=== PATIENT | female | born 2000 | race African-American/Black ===

== ENCOUNTER → 2018-06-01 10:58 | Outpatient (CLI) | payer OTHER, MEDICAID, SELFPAY ==
--- NOTE | 2018-06-01 11:14 | MRI_ITS ---
STUDY: MRI RIGHT KNEE REASON FOR EXAM: Female, 18 years old. Twisting injury playing basketball. TECHNIQUE: Standardized fat and water weighted pulse sequences were obtained in all 3 orthogonal planes. COMPARISON: None. FINDINGS: There is a medial meniscus tear of the posterior horn, series 4 images 32/44 and 33/44. Normal hyaline cartilage of the medial femorotibial compartment. There is reactive marrow edema of the medial femoral condyle and posterior medial tibial plateau. There is a partial sprain of the MCL with interstitial and periligamentous edema. Normal distal semimembranosus, gracilis and semitendinosus tendons. There is lateral meniscus tear of the posterior horn, series 8 image 11/30. Normal hyaline cartilage of the lateral femorotibial compartment. There is reactive marrow edema of the lateral femoral condyle and posterior lateral tibial plateau. Normal proximal tibiofibular articulation. Normal lateral collateral (fibular) ligament. Normal popliteus tendon. Normal biceps femoris tendon. There is discontinuity of the rupture of the anterior cruciate ligament (ACL), series 5 image 13/25. Normal posterior cruciate ligament (PCL). Normal congruent patellofemoral articulation. Normal hyaline cartilage of the patellofemoral compartment. Normal medial and lateral patellar retinaculum. Normal quadriceps tendon. Normal patellar tendon. Normal Hoffa's fat pad. There is a large volume joint effusion. The soft tissues are unremarkable. The otherwise visualized osseous structures are unremarkable. MRI/Lower Ext Joint Only (Routine) IMPRESSION: Anterior cruciate ligament rupture. Medial collateral ligament sprain. Medial meniscus tear. Lateral meniscus tear. Joint effusion. Bone bruising. Electronically Signed: Barak Mckoy MD at 13:08 EST , Service support ,
== END ==
PROVIDERS: Referring Provider Family Medicine; Visit Provider Family Medicine
DX: M25.361 Other instability, right knee (principal)
CPT/HCPCS: 73721

== ENCOUNTER 2018-06-28 05:49 | Day surgery (SDC) | payer OTHER, MEDICAID, SELFPAY ==
[2018-06-28] VITALS (7 sets, daily range): BP systolic 119–134; BP diastolic 69–83; PULSE 67–79; RESP 14–16; TEMP 36.6–37; O2SAT 95–100; BMI 24.9
[2018-06-28 06:16] LABS: Internal QC Validated? YES +Cl - CLEAR BKGD; Pregnancy, Urine Negative Negative
[2018-06-28] MEDS: Cefazolin 2 GM in 0.9% Normal Saline 100 ML IV (07:20)
[2018-06-28] MEDS: Bupiv/Epi 0.5% Mpf 30 ML Vial (07:39)
--- NOTE | 2018-06-28 09:15 | PCM.IMDPSTOP ---
Immediate Post-Op Note Date of Procedure: 06/28/18 Primary Surgeon/Physician: Taj Lew DO marine fire fighter: Spencer Gonzalez Pre-Operative Diagnosis: MMT, LMT, ACL tear right knee Post-Operative Diagnosis: same Surgery/Procedure Performed:: Arthroscopic partial medial and lateral meniscectomies with ACL reconstrustion using hamstring autograft Description of Surgical Findings:: see op note Estimated Blood Loss: minimal Specimen's removed: none Type of Anesthesia:: General ASA Class: ASA1 Normal Healthy Patient - Admit VTE Documentation VTE Present on Admission: No VTE Mechan Device Prophylaxis: SCD's, Thigh High ABHI Hose VTE Pharm Prophylaxis ordered?: No Reason prophylaxis not ordered:: Treatment Not Indicated
--- NOTE | 2018-06-28 09:18 | OP.PN_ITS ---
Immediate Post-Op Note Date of Procedure: 06/28/18 Primary Surgeon/Physician: Taj Lew DO orthopedic cast specialist: Spencer Gonzalez Pre-Operative Diagnosis: MMT, LMT, ACL tear right knee Post-Operative Diagnosis: same Surgery/Procedure Performed:: Arthroscopic partial medial and lateral meniscectomies with ACL reconstrustion using hamstring autograft Description of Surgical Findings:: see op note Estimated Blood Loss: minimal Specimen's removed: none Type of Anesthesia:: General ASA Class: ASA1 Normal Healthy Patient - Admit VTE Documentation VTE Present on Admission: No VTE Mechan Device Prophylaxis: SCD's, Thigh High ABHI Hose VTE Pharm Prophylaxis ordered?: No Reason prophylaxis not ordered:: Treatment Not Indicated
[2018-06-28] MEDS: HYDROcodone Bitartrate/Apap 5/325 Tablet PO (10:44)
== END 2018-06-28 12:18 | disposition home or self-care (01) ==
LOC: SDC 05:51 → AC 05:53
PROVIDERS: Anesthesiology; Referring Provider Orthopaedic Surgery; Visit Provider Orthopaedic Surgery
PROC: (CPT 29880; principal; 2018-06-28 07:10)
DX: S83.511D Sprain of anterior cruciate ligament of right knee, subsequent encounter (principal); S83.241A Other tear of medial meniscus, current injury, right knee, initial encounter; S83.281A Other tear of lateral meniscus, current injury, right knee, initial encounter; X58.XXXA Exposure to other specified factors, initial encounter; Y93.67 Activity, basketball; Y92.214 College as the place of occurrence of the external cause; Y99.8 Other external cause status; J45.909 Unspecified asthma, uncomplicated
CPT/HCPCS: 01400; 29880; 29888; 64450; 81025; J7120; J2405

== ENCOUNTER 2018-10-06 14:10 | Emergency (ER) | payer MEDICAID, SELFPAY ==
[2018-06-28 06:21] VITALS: BMI 24.9
[2018-10-06 14:11] VITALS: BP 114/71; PULSE 86; RESP 16; TEMP 36.7; O2SAT 97; BMI 24.3
[2018-10-06 15:19] VITALS: O2SAT 97
--- NOTE | 2018-10-06 15:38 | EKG12_ITS ---
Test Reason : CP Blood Pressure : / mmHG Vent. Rate : 075 BPM Atrial Rate : 075 BPM P-R Int : 156 ms QRS Dur : 082 ms QT Int : 364 ms P-R-T Axes : 060 058 050 degrees QTc Int : 406 ms Normal sinus rhythm Possible Left atrial enlargement Borderline ECG Confirmed by GUI GOLD, ERYN ([id number]), content editor KALA AMAYA ([id number]) on 10/18/2018 1:51:24 PM Referred By: YEMI/PAULINO Confirmed By:ERYN MESSER MD
--- NOTE | 2018-10-06 15:38 | RAD_ITS ---
STUDY: X-RAY CHEST REASON FOR EXAM: Female, 18 years old. Chest pain. TECHNIQUE: PA and lateral views of the chest. COMPARISON: None. FINDINGS: There is a vague rounded opacity within the right upper/midlung. Normal size heart. Normal mediastinum and joão. Normal visualized pulmonary arteries. Normal visualized aortic arch and descending thoracic aorta. Normal visualized thoracic spine. Normal visualized ribs, clavicles, and shoulders. There is no demonstrated abnormality of the visualized soft tissue structures of the upper abdomen. RAD/Chest PA and Lateral IMPRESSION: Vague opacity within the right upper/midlung which may be secondary to a confluence of shadows however cannot exclude underlying evolving pneumonia or a pulmonary nodularity; consider CT or inspiratory and expiratory images for further characterization. Electronically Signed: Ruthie Schultz MD at 16:24 EDT Tel , Service support ,
--- NOTE | 2018-10-06 15:51 | ED.DCSUM_ITS ---
- ER Visit Summary Date of Service: 10/06/18 Chief Complaint: Shortness of breath History of Present Illness: The patient is a 18 F who presents with shortness of breath that has been getting worse over the past 2 weeks. Patient states her breathing is worse with any exertion. Patient states her breathing improves with rest. Patient describes her pain as a throbbing pain but is sharp with certain movements. Patient denies any cough. Patient denies any fevers or chills. Patient denies any sore throat or rhinorrhea. Patient had a right ACL repair in June. Patient also states she feels like she has a yeast infection. She admits to some vaginal itching. Physical Examination: Vital signs are stable. Patient is afebrile. Patient is in no acute distress. Oral mucosa is pink and moist. Neck is supple. Trachea is midline. There is no JVD noted. Heart was regular rate and rhythm. Lungs are clear and equal bilateral. Abdomen is soft. Bowel sounds are normal. There is no tenderness. There is no guarding noted. Skin is warm dry. Cranial nerves II through XII are intact. There are no focal motor or sensory deficits noted. The remaining physical exam is within normal limits. Test Results: EKG showed a normal sinus rhythm with a rate of 75. There are no acute ST or T wave changes noted. D-dimer was elevated at 0.72. CBC and basic metabolic profile were within normal limits. CT scan of the chest was obtained. There is no evidence of pulmonary embolism. Emergency Department Course and Treatment: Patient was given a dose of Diflucan here. Patient was instructed to follow-up with her primary care physician in 5- 7 days. Patient understood and was agreeable with the plan. All questions were answered. Disposition: Discharge home Impression: 1. Dyspnea 2. Vaginal candidiasis This note was generated with [employer] dictation software. It may contain incorrect words, spelling, and punctuation that were not noted in review of the chart prior to signing ED Disposition - Plan for ED Patient: Disposition: Home or Assisted Living Diagnosis: Dyspnea Instructions: ED Dyspnea Shortness of Breath Referrals: Care Physician,No Primary [Primary Care Provider] -
[2018-10-06 16:28] LABS: Absolute Lymphocyte Count 2.21 X10^3/ul (0.83-4.51); Absolute Neutrophil Count 2.3 X10^3/uL (2.0-7.7); Basophil# 0.02 X10^3/uL; Basophil% 0.4 % (0-1); Hematocrit 35.4 % (37-47); Hemoglobin 12.1 g/dl (12.0-15.0); Lymphocyte # 2.21 X10^3/ul (4.0); Mean Corp Hgb Conc 34.2 g/gl (32-36); Mean Corpuscular Hgb 28.9 pg (27.0-32.0); Mean Corpuscular Volume 84.7 fL (81-99); Mean Platelet Vol. 9.3 fl (6.2-12.0); Monocyte# 0.24 X10^3/uL; Monocyte% 4.9 % (0-10); Neutrophil # 2.34 X10^3/uL (2.7-7.7); Neutrophil % 47.7 % (47-70); Platelet Count 216 K/mm3 (150-450); RBC Distribution Width CV 14.2 % (11.6-14.6); RBC Distribution Width SD 44.2 fl (35.1-43.9); Red Blood Count 4.18 M/mm3 (4.2-5.4); White Blood Count 4.9 K/mm3 (4.4-11.0)
[2018-10-06 16:29] LABS: POSITIVE COUNT NO; POSITIVE DIFFERENTIAL NO; POSITIVE MORPHOLOGY NO
[2018-10-06 16:44] LABS: D-Dimer Quantitative (DVT/PE) 0.72 FEU/ug/m (0.27-0.49)
[2018-10-06 16:45] LABS: Anion Gap 5 (5-15); BUN 10 mg/dL (7-18); BUN/Creat Ratio 10.4 RATIO (10-20); Calcium,Total 8.4 mg/dL (8.5-10.1); Chloride 108 mmol/L (98-107); Creatinine, Serum 0.97 mg/dL (0.55-1.02); EST Glomerular Filtration Rate 78 mL/min (>60); Est Glom Filt Rate - Afr Amer 94 mL/min (>60); Estimated Creatinine Clearance 113.48 ml/min; Glucose 84 mg/dL (74-106); Potassium 4.2 mmol/L (3.5-5.1); Sodium Level 139 mmol/L (136-145)
--- NOTE | 2018-10-06 16:58 | CT_ITS ---
STUDY: CTA CHEST REASON FOR EXAM: Female, 18 years old. Chest pain. RADIATION DOSAGE (If Supplied By Facility): CTDIvol = ( 10.16 ) mGy, DLP = ( 319.79 ) mGycm TECHNIQUE: The examination was performed with the intravenous administration of 100 IV Isovue 370. Post-processing of the angiographic images was performed, with multiplanar reformation and 3D reconstruction. Individualized dose optimization techniques were used for this CT. COMPARISON: None. FINDINGS: There is no focal consolidation. Normal enhancement of the main pulmonary artery and right and left pulmonary arteries. There is suboptimal enhancement of the bilateral peripheral pulmonary arteries. There is no demonstrated pulmonary embolism. Normal thoracic aorta and visualized great vessels. There is no demonstrated aortic dissection. Normal heart and pericardium. Normal mediastinum. Normal hilar regions. Normal visualized trachea and bronchi. Normal chest wall structures. Normal osseous structures. Normal visualized upper abdomen. CT/CTA Chest W/WO Contrast IMPRESSION: No demonstrated pulmonary embolism or arterial dissection. Electronically Signed: Ruthie Schultz MD at 17:45 EDT Tel , Service support ,
[2018-10-06 17:17] VITALS: BP 98/75; PULSE 57; RESP 14; O2SAT 99
[2018-10-06 18:17] VITALS: BP 98/75; PULSE 57; RESP 18; O2SAT 99
[2018-10-06] MEDS: FLUCONAZOLE 150 MG TABLET PO (18:27)
== END 2018-10-06 18:34 | disposition home or self-care (01) ==
PROVIDERS: Emergency Provider Emergency Medicine
DX: R06.00 Dyspnea, unspecified (principal); B37.3 Candidiasis of vulva and vagina; J45.909 Unspecified asthma, uncomplicated
CPT/HCPCS: 71046; 71275; 80048; 85025; 85379; 93005; 99284; Q9967; A4216

== ENCOUNTER 2019-04-19 11:02 | Day surgery (SDC) | payer MEDICAID, SELFPAY ==
[2019-04-19] VITALS (8 sets, daily range): BP systolic 105–112; BP diastolic 62–83; PULSE 54–62; RESP 16; TEMP 36.5–37.2; O2SAT 98–100; BMI 24.9
[2019-04-19 11:34] LABS: Internal QC Validated? YES +Cl - CLEAR BKGD; Pregnancy, Urine Negative Negative
[2019-04-19] MEDS: Lactated Ringers 1,000 ML 100 ML IV (11:53)
[2019-04-19] MEDS: Cefazolin 2 GM in 0.9% Normal Saline 100 ML IV (12:44)
[2019-04-19] MEDS: Epinephrine (1 mg/ml) 1 MG/ML VIAL (13:28)
[2019-04-19] MEDS: Bupiv/Epi 0.5% Mpf 30 ML Vial INTRAARTIC (13:29)
--- NOTE | 2019-04-19 13:41 | OP.PCM_ITS ---
Report of Operation Date of Procedure: 04/19/19 Pre-Operative Diagnosis: Internal derangement right knee Post-Operative Diagnosis: 1. Horizontal, macerated posterior horn lateral meniscus tear. 2. Inner 1/3 medial meniscus tear. 3. s/p ACL reconstruction with intact graft Surgery/Procedure Performed:: Diagnostic and Operative arthroscopy with partial medial and lateral meniscectomies right knee Description of Surgical Findings:: Primary Surgeon/Physician: Taj Lew line appliance assembler: none line appliance assembler: Pre-Operative Diagnosis: Medial and lateral meniscus tears right knee Post-Operative Diagnosis: same with intact ACL graft Surgery/Procedure Performed: Diagnostic and operative arthroscopy with partial medial and lateral meniscectomies Estimated Blood Loss: minimal Specimen's Removed: none Type of Anesthesia: general ASA Class: 1 Indications: [ ] Patient has failed conservative measures and at this point has elected to undergo the above procedure. Procedure Description: The patient was greeted in the preoperative area. The [right ] knee was marked with surgical marker. Preoperative antibiotics were administered. The patient was then taken to the operating suite and placed in a supine position on operating room table. After adequate anesthesia was obtained and airway was secured a well-padded tourniquet was placed on patient's affected extremity. Leg was then prepped and draped in usual sterile fashion. Surgical timeout was performed and confirmed with all present and surgery was commenced. Standard anteromedial anterolateral portals were made and a 30? arthroscope was then inserted into the knee. [ ]. There was an inner 1/3 tear of the posterior horn of the medial meniscus. This was trimmed to a firm and stable rim with straight basket punches. A meniscotome was used to remove the meniscal fragments and smooth the remaining meniscus to a firm and stable rim. The ACL graft was probed and found to be stable and intact. An anterior drawer test was performed under direct visualization and was negative. There was a horizontal, macerated tear of the lateral meniscus involving the posterior horn extending into the popliteal hiatus. The torn portion of the meniscus was trimmed with a straight basket punch. The meniscal fragments were removed with a meniscotome and the meniscotome was used to shave the lateral meniscus to a firm and stable rim. At this point all instruments were removed. Arthroscopic portals were closed in a standard fashion. 30 cc of 0.5% Marcaine was then injected into the knee. Well-padded nonadherent dressing was applied and secured with an Alvin wrap. Tourniquet was deflated and patient was taken to the recovery room in stable condition. Type of Anesthesia:: General Anesthesiologist: Miky Hoyos Drains: none - Admit VTE Documentation VTE Present on Admission: No VTE Mechan Device Prophylaxis: SCD's, Thigh High ABHI Hose VTE Pharm Prophylaxis ordered?: No Reason prophylaxis not ordered:: Treatment Not Indicated
== END 2019-04-19 15:45 | disposition home or self-care (01) ==
LOC: SDC 11:03 → AC 11:04
PROVIDERS: Anesthesiology; Referring Provider Orthopaedic Surgery; Visit Provider Orthopaedic Surgery
PROC: (CPT 29870; principal; 2019-04-19 12:10)
DX: S83.511D Sprain of anterior cruciate ligament of right knee, subsequent encounter (principal); S83.281D Other tear of lateral meniscus, current injury, right knee, subsequent encounter; S83.241D Other tear of medial meniscus, current injury, right knee, subsequent encounter; J45.909 Unspecified asthma, uncomplicated
CPT/HCPCS: 29880; 81025; J7120; J2405

== ENCOUNTER 2019-08-20 04:17 | Emergency (ER) | payer MEDICAID, SELFPAY ==
[2019-04-19 11:31] VITALS: BMI 24.9
[2019-08-20 04:19] VITALS: BP 128/78; PULSE 77; RESP 16; TEMP 36.9; O2SAT 100; BMI 26.6
--- NOTE | 2019-08-20 04:37 | RAD_ITS ---
STUDY: X-RAY CHEST REASON FOR EXAM: Female, 19 years old. POSITIVE FOR INFLUENZA B -- C/O COUGH X 2+ DAYS -- SOB AND CHEST TIGHTNESS STARTING TODAY TECHNIQUE: 2 views COMPARISON: None. FINDINGS: The lungs are clear and expanded. There is no demonstrated pleural abnormality. Normal size heart. Normal mediastinum and joão. Normal visualized pulmonary arteries. Normal visualized aortic arch and descending thoracic aorta. Normal visualized thoracic spine. Normal visualized ribs, clavicles, and shoulders. There is no demonstrated abnormality of the visualized soft tissue structures of the upper abdomen. RAD/Chest PA and Lateral IMPRESSION: Normal x-ray examination of the chest. No acute findings in the lungs Electronically Signed: Sung Zamudio MD at 5:18 EST Tel , Service support ,
--- NOTE | 2019-08-20 04:38 | ED.DCSUM_ITS ---
History of Present Illness Chief Complaint: Shortness of Breath Informant: Patient Onset: Today Context: Gradual Onset Timing: Continuous Quality: wheezing, tightness Location: chest Current Severity: Mild Maximum Severity: Moderate Worsened by: - - exertion Relieved by: - - rest Associated Symptoms: Shortness of Breath, Chest Pain - tight, Nonproductive cough Narrative: Patient has been sick for about 3 or 4 days with this illness including fevers, nonproductive cough, congestion, sneezing. She is a student at the local [employer] and went to the wellness [facility]. They did an influenza swab and it returned positive. She states this past day, her asthma has been flaring up and she has been wheezing and feeling tight. As a result, they sent her here. She states she does have an asthma inhaler. She has not tried to use it for these symptoms this past day. She denies any other new symptoms at this time. Prior similar symptoms: Yes - Past Medical History (1) Asthma Status: Chronic Past Medical History - Allergies and Home Meds Allergies/Adverse Reactions: Allergies No Known Allergies Allergy (Verified 08/20/19 04:18) [facility] - As Needed Lives: Roommate Smoking Status: Never smoker Review of Systems General: Reports: Fever, Malaise ENT: Reports: Rhinorrhea. Denies: Bilateral ear pain, Sore throat Cardiovascular: Reports: Chest pain. Denies: Palpitations Respiratory: Reports: Dyspnea, Cough. Denies: Sputum Gastrointestinal: Denies: Abdominal pain, Nausea, Vomiting, Diarrhea, Melena, Hematochezia Skin: Denies: Rash, Wounds Physical Exam Vital Signs/Narrative: Vital Signs Temp Pulse Resp BP Pulse Ox 08/20/19 04:19 98.4 F 77 16 128/78 H 100 Inital Vital Signs reviewed: Yes General: Well nourished, Well developed, - - Well-appearing, no distress. Conversive in full sentences. Head: Normocephalic, Atraumatic Eyes: Perrl, EOMI Nose: Normal Inspection, No Rhinorrhea, Congestion Neck: Supple, - - Full range of motion Cardiovascular: Regular rate, Regular rhythm, No murmurs Respiratory: No distress, CTA bilaterally, Chest nontender Neurological: Alert, Oriented x3, Cranial nerves II-XII grossly intact, Normal Strength, Normal Sensation, Normal Gait Psychological: Normal affect, Normal Mood Diagnostic/Tx/Re-eval Clinical Impression(s) from Imaging Studies Chest X-Ray 08/20/19 04:37 IMPRESSION: Normal x-ray examination of the chest. No acute findings in the lungs Electronically Signed: Sung Zamudio MD at 5:18 EST Tel , Service support , - Medical Decision Making Chest x-ray unremarkable. After a couple of nebulizer treatments she is feeling better. She did have one episode of vomiting but it was posttussive, she was gagging herself not nauseated. She was fine afterwards. Will start her on prednisone and prescribe her a 5-day burst after the initial day now, she states she has an albuterol inhaler at home to use if needed for rescue. Just prior to discharge, she asked for a prescription for a new albuterol inhaler, which was also provided. ED Disposition - Plan for ED Patient: Disposition: Home or Assisted Living Diagnosis: Influenza, Acute asthma exacerbation Instructions: ASTHMA, Acute (Adult), INFLUENZA (Adult) Prescriptions: Prednisone [Deltasone] 40 mg PO DAILY #10 tab Transmission Status: Received by [facility] [place] Albuterol Inhaler [Ventolin Hfa] 1 - 2 puff INHALATION Q4H PRN PRN #1 inhaler PRN Reason: Wheezing Prescription Printed Referrals: [place] [GROUP OF PHYSICIANS] - As Needed
[2019-08-20 04:44] VITALS: PULSE 77; RESP 16
[2019-08-20] MEDS: Albuterol 2.5 MG/3 ML VIAL.NEB. INHALATION (04:44)
[2019-08-20] MEDS: predniSONE 20 MG Tablet 40 MG PO (05:36)
[2019-08-20] MEDS: Ipratropium/Albuterol Sulfate 3 ML AMPUL.NEB INHALATION (05:43)
[2019-08-20 05:45] VITALS: RESP 18; O2SAT 98
[2019-08-20 06:09] VITALS: BP 125/86; PULSE 99; RESP 17; O2SAT 97
== END 2019-08-20 06:16 | disposition home or self-care (01) ==
PROVIDERS: Emergency Provider Emergency Medicine; PCP Pediatrics
DX: J45.901 Unspecified asthma with (acute) exacerbation (principal); J10.1 Influenza due to other identified influenza virus with other respiratory manifestations
CPT/HCPCS: 71046; 94640; 99251; 99283; G0463

== ENCOUNTER 2020-02-18 18:57 | Emergency (ER) | payer MEDICAID, SELFPAY ==
[2020-02-18 18:58] VITALS: BP 127/68; PULSE 63; RESP 18; TEMP 36.5; O2SAT 100; BMI 24.5
--- NOTE | 2020-02-18 19:30 | CT_ITS ---
STUDY: CT BRAIN WITHOUT CONTRAST REASON FOR EXAM: Female, 19 years old. LT HAND N/T/NOW EXTENDED TO WHOLE LEFT SIDE SINCE THIS AM,HEADACHE,PT HAS BRAIDED HAIR HX:[facility] RADIATION DOSAGE (If Supplied By Facility): CTDIvol = ( 44.99 ) mGy, DLP = ( 829.85 ) mGycm TECHNIQUE: Transaxial CT imaging of the brain was performed without administration of intravenous contrast material. Individualized dose optimization techniques were used for this CT. COMPARISON: None. FINDINGS: Normal soft tissue structures. Normal calvarium. No dense artery sign. No hydrocephalus. No midline shift. Normal size ventricles and extra-axial spaces for the patient''s age. Normal white matter tracts of the cerebral hemispheres. Normal basal ganglia and thalami. Normal brainstem. Normal cerebellum. There is no intracranial hemorrhage. There are no findings of an acute ischemic infarction. Normal visualized paranasal sinuses. CT/Brain/Head without Contrast IMPRESSION: No demonstrated acute or significant intracranial process. Electronically Signed: Daniele Choi MD at 20:37 EDT , Service support ,
[2020-02-18] MEDS: DiphenhydrAMINE 50 MG/ML Syringe 25 MG IV (19:57)
[2020-02-18] MEDS: proCHLORPERazine 10 MG/2 ML Vial IV (19:59)
[2020-02-18 20:05] VITALS: BP 132/83; PULSE 74; RESP 16; O2SAT 100
[2020-02-18 20:13] LABS: Absolute Neutrophil Count 2.7 X10^3/uL (2.0-7.7); Basophil# 0.02 X10^3/uL; Basophil% 0.4 % (0-1); Eosinophil# 0.13 X10^3/uL; Eosinophils% 2.3 % (0-5); Hematocrit 38.4 % (37-47); Hemoglobin 13.1 g/dL (12.0-15.0); Mean Corp Hgb Conc 34.1 g/dL (32-36); Mean Corpuscular Volume 88.1 fL (81-99); Mean Platelet Vol. 9.1 fl (6.2-12.0); Monocyte# 0.27 X10^3/uL; Monocyte% 4.8 % (0-10); NRBC Flagged by Analyzer 0 % (0-5); Neutrophil # 2.74 X10^3/uL (2.7-7.7); Neutrophil % 49.1 % (47-70); Platelet Count 252 K/mm3 (150-450); RBC Distribution Width CV 12.8 % (11.6-14.6); RBC Distribution Width SD 41.4 fl (35.1-43.9); Red Blood Count 4.36 M/mm3 (4.2-5.4); White Blood Count 5.6 K/mm3 (4.4-11.0)
[2020-02-18 20:23] LABS: Anion Gap 5 (5-15); BUN 8 mg/dL (7-18); BUN/Creat Ratio 8.8 RATIO (10-20); Calcium,Total 9.2 mg/dL (8.5-10.1); Chloride 108 mmol/L (98-107); EST Glomerular Filtration Rate 83 mL/min (>60); Est Glom Filt Rate - Afr Amer 100 mL/min (>60); Glucose 94 mg/dL (74-106); Potassium 3.5 mmol/L (3.5-5.1); Sodium Level 140 mmol/L (136-145)
[2020-02-18 21:07] LABS: Internal QC Validated? YES +Cl - CLEAR BKGD; Pregnancy, Serum, hCG Quali. NEGATIVE Negative
--- NOTE | 2020-02-18 21:46 | ED.VISSUMM ---
- ER Visit Summary Date of Service: 02/18/20 Chief Complaint: Numbness History of Present Illness: The patient is a 19 F with numbness that started in her left hand this morning. Over the past 2 hours, it progressed over her entire left side. No history of this previously. No other associated symptoms, except she does have a frontal headache for several days, worse today. No history of migraines or these types of symptoms with headaches. Physical Examination: Afebrile and vital signs unremarkable, reviewed. Head and neck atraumatic. HEENT exam unremarkable. Heart regular. Lungs clear. Skin appears normal. Good strength. Subjective decreased sensation over the left side of her body. No other abnormal findings on exam. Test Results: CT brain unremarkable. Basic labs unremarkable. Emergency Department Course and Treatment: I suspect patient's symptoms may be related to her headache. She was treated with Compazine and Benadryl. She did feel slightly better and have decreased symptoms on reevaluation. She is young and otherwise healthy. No other red flag features, significant family history at a young age, or any other risk factors. I will refer her for outpatient follow-up with neurology. She should return right away for any new or worsening issues. Treatment Plan: As above Disposition: Discharge Impression: Headache, paresthesias This note was generated with [employer] dictation software. It may contain incorrect words, spelling, and punctuation that were not noted in review of the chart prior to signing ED Disposition - Plan for ED Patient: Referrals: Silas Padilla MD [Primary Care Provider] -
--- NOTE | 2020-02-18 21:49 | ED.DEP ---
ED Disposition - Plan for ED Patient: Instructions: ED Paraesthesias Referrals: Ayo Reeder MD [STAFF PHYSICIAN] -
[2020-02-18 21:54] VITALS: PULSE 74; RESP 16; O2SAT 100
== END 2020-02-18 21:54 | disposition home or self-care (01) ==
LOC: ED 19:43
PROVIDERS: Emergency Provider Emergency Medicine; PCP Pediatrics
DX: R51 Headache (principal); R20.2 Paresthesia of skin
CPT/HCPCS: 70450; 80048; 84703; 85025; 96374; 96375; 99285; A4216

== ENCOUNTER → 2020-09-05 07:04 | Outpatient (CLI) | payer MEDICAID, SELFPAY ==
[2020-09-05 09:12] LABS: Absolute Lymphocyte Count 1.65 X10^3/uL (0.83-4.51); Absolute Neutrophil Count 2.1 X10^3/uL (2.0-7.7); Basophil# 0.03 X10^3/uL; Basophil% 0.7 % (0-1); Eosinophil# 0.08 X10^3/uL; Hematocrit 34.1 % (37-47); Hemoglobin 11.1 g/dL (12.0-15.0); Lymphocyte # 1.65 X10^3/ul (4.0); Lymphocyte % 40.2 % (19-41); Mean Corp Hgb Conc 32.6 g/dL (32-36); Mean Corpuscular Hgb 29.1 pg (27.0-32.0); Mean Corpuscular Volume 89.3 fL (81-99); Mean Platelet Vol. 9.2 fl (6.2-12.0); Monocyte# 0.25 X10^3/uL; Monocyte% 6.1 % (0-10); NRBC Flagged by Analyzer 0 % (0-5); Neutrophil # 2.08 X10^3/uL (2.7-7.7); Neutrophil % 50.8 % (47-70); Platelet Count 241 K/mm3 (150-450); RBC Distribution Width CV 12.4 % (11.6-14.6); RBC Distribution Width SD 40.5 fl (35.1-43.9); Red Blood Count 3.82 M/mm3 (4.2-5.4); White Blood Count 4.1 K/mm3 (4.4-11.0)
[2020-09-05 10:10] LABS: AST(SGOT) 15 U/L (15-37); Alanine Aminotransfer ALT/SGPT 17 U/L (13-56); Albumin, Serum 3.5 g/dL (3.2-5.0); Alkaline Phosphatase 64 U/L (45-117); Anion Gap 6 (5-15); BUN 9 mg/dL (7-18); BUN/Creat Ratio 9.6 RATIO (10-20); Calcium,Total 8.3 mg/dL (8.5-10.1); Chloride 110 mmol/L (98-107); Cholesterol 141 mg/dL (200); Creatinine, Serum 0.94 mg/dL (0.55-1.02); EST Glomerular Filtration Rate 79 mL/min (>60); Est Glom Filt Rate - Afr Amer 96 mL/min (>60); Globulin 3.6 g/dL (2.2-4.2); Glucose 92 mg/dL (74-106); High Density Lipoprotein 66 mg/dL; Potassium 3.5 mmol/L (3.5-5.1); Protein, Total 7.1 g/dL (6.4-8.2); Sodium Level 142 mmol/L (136-145); Triglycerides 57 mg/dL; Very Low Density Lipoprotein 11 mg/dL (5-40)
--- NOTE | 2020-09-05 11:19 | PFT_ITS ---
INTRODUCTION: The patient is a 20-year-old -[place] female that presents for pulmonary function studies secondary to a diagnosis of bronchospasm. Respiratory therapy reports good patient effort. Bronchodilators were used during testing. INTERPRETATION: Forced expiration spirometry demonstrates no evidence of a large airways obstructive ventilatory defect. There was no significant response to aerosolized bronchodilators, based upon strict ATS criteria. Spirograms are of good quality and plateau normally. Body plethysmography was performed and reveals a decreased TLC to 5.98 L, 85% of predicted, indicative of a mild restrictive ventilatory impairment. Diffusing capacity by single breath CO is mildly reduced at 73% of predicted. IMPRESSION: Isolated mild restrictive ventilatory impairment with symmetric reduction in diffusing capacity.
== END ==
DX: J45.990 Exercise induced bronchospasm (principal)
CPT/HCPCS: 36415; 80053; 80061; 84443; 85025; 94060; 94726; 94729

== ENCOUNTER → 2020-09-10 12:30 | Outpatient (CLI) | payer MEDICAID, SELFPAY ==
[2020-09-10 14:01] LABS: PTHIN 134.2 pg/mL (18.4-80.1)
[2020-09-10 14:05] LABS: Vitamin B12 388 pg/mL (211-911)
[2020-09-10 14:16] LABS: Ferritin 15 ng/mL (8-252); Iron 45 ug/dL (50-170); Iron Binding Capacity,Total 426 ug/dL (250-450)
[2020-09-11 10:36] LABS: Thyroid Peroxidase AB < 9 IU/mL (0-34)
== END ==
DX: E83.51 Hypocalcemia (principal); D64.9 Anemia, unspecified
CPT/HCPCS: 36415; 82607; 82728; 82746; 83540; 83550; 83970; 86376

== ENCOUNTER → 2020-09-18 11:01 | Outpatient (CLI) | payer MEDICAID, SELFPAY | PROVIDERS: Visit Provider Nurse Practitioner Adult Health | DX: D64.9 Anemia, unspecified (principal) | CPT/HCPCS: 87506 ==

== ENCOUNTER → 2020-10-23 14:17 | Outpatient (CLI) | payer MEDICAID, SELFPAY ==
[2020-10-23 15:40] LABS: Vitamin D,25 Hydroxy 8.5 ng/mL
== END ==
DX: E21.2 Other hyperparathyroidism (principal)
CPT/HCPCS: 36415; 82306